=== PATIENT | female | born 2005 | race Caucasian/White ===

== ENCOUNTER → 2023-08-20 | Outpatient (CLI) | payer OTHER ==
[2023-08-20 16:34] LABS: Chol/HDL Ratio 2.44 Ratio; LDL Cholesterol,Calculated 85.4 mg/dL (0.0-131.0); VLDL Calculation 8.98 mg/dL (5.00-40.00)
--- NOTE | 2023-08-20 18:51 | US ---
EXAMINATION TYPE: US abdomen complete DATE OF EXAM: 08/20/2023 COMPARISON: NONE CLINICAL INDICATION: Female, 18 years old with history of R10.13 EPIGASTRIC PAIN; Intermittent diarrh ea and constipation TECHNIQUE: Multiple sonographic images of the abdomen are obtained. FINDINGS: EXAM MEASUREMENTS: Liver Length: 10.7 cm Gallbladder Wall: 0.2 cm CBD: 0.6 cm Spleen: 10.5 cm Right Kidney: 11.0 x 4.2 x 5.4 cm Left Kidney: 10.4 x 4.7 x 5.4 cm [employer] SERVICES COORDINATOR NOTES: Pancreas: Tail obscured by overlying bowel gas Liver: wnl Gallbladder: wnl Evidence for sonographic Garza's sign: No CBD: wnl Spleen: wnl Right Kidney: wnl Left Kidney: wnl Upper IVC: wnl Abd Aorta: wnl The liver is homogenous. The intrahepatic portion of the IVC and proximal abdominal aorta are within normal limits. There is no evidence of cholelithiasis. Common bile duct is unremarkable. The visu alized portions of the pancreas are homogenous. The spleen is unremarkable. Kidneys are symmetric a nd free of hydronephrosis. No renal lesions are seen. IMPRESSION: No evidence for acute process.
[2023-08-20 20:11] LABS: Gliadin AB IgA, Deaminated POSITIVE; Gliadin AB IgA, Unit 25.9 U/mL; Gliadin AB IgG, Deaminated Negative (Negative); Gliadin AB IgG, Unit <0.4 U/mL
== END | disposition home or self-care (01) ==
LOC: RADUSWWP 07:33
PROVIDERS: ATTEND Internal Medicine Gastroenterology
DX: R10.13 Epigastric pain (principal); R19.4 Change in bowel habit; Z83.49 Family history of other endocrine, nutritional and metabolic diseases
CPT/HCPCS: 36415; 76700; 80061; 83516; 85652; 86140